=== PATIENT | female | born 1975 | race Caucasian/White ===

== ENCOUNTER 2017-01-04 08:49 | Emergency (ER) | payer MEDICAID ==
[~2017-01-04] VITALS: Ht 160 cm; Wt 74.4 kg
[2017-01-04 08:51] VITALS: BP 135/91
[2017-01-04] MEDS ORDERED: KETOROLAC 30 MG/1 ML ONE (09:23)
[2017-01-04] MEDS ORDERED: HYDROcodone/APAP 5/325 TABLET ONE (09:23)
[2017-01-04] MEDS ORDERED: HYDROcodone/APAP 5/325 TABLET PO ONE (09:30)
[2017-01-04] MEDS ORDERED: KETOROLAC 30 MG/1 ML IM ONE (09:30)
[2017-01-04 09:40] LABS: HEMATOCRIT 39.1 % (34.6-47.8); HEMOGLOBIN 13.4 g/dL (11.7-16.4); WHITE BLOOD COUNT 8.7 x10^3/uL (3.4-10)
[2017-01-04] MEDS ORDERED: PLEASE ENTER ALLERGIES MC SCH ×2 (10:00)
[2017-01-04 10:29] LABS: ANISOCYTOSIS 1+
== END 2017-01-04 10:56 | disposition home or self-care (01) ==
LOC: ED 10:26
DX: M13.171 Monoarthritis, not elsewhere classified, right ankle and foot (principal); M10.9 Gout, unspecified
CPT/HCPCS: 36415; 73630; 84550; 85025; 96372; 99285; J1885

== ENCOUNTER 2017-05-10 10:08 | Inpatient (IN) | payer MEDICAID ==
[~2017-05-10] VITALS: Ht 160 cm; Wt 80.3 kg
[2017-05-10] MEDS ORDERED: LORazepam 1MG TABLET ONE (10:48)
[2017-05-10] MEDS ORDERED: LORazepam 1MG TABLET PO ONE (11:00)
[2017-05-10] MEDS ORDERED: INDO25CA PO (11:02)
[2017-05-10 11:14] LABS: CULTURE INDICATED? NO; MICROSCOPIC NOT IND
[2017-05-10 11:48] LABS: MEAN CORPUSCULAR HEMOGLOBIN 38.1 pg (27.0-34.8); MEAN PLATELET VOLUME 9.1 fL (7.4-10.4); PLATELET COUNT 333 x10^3/uL (130-400); RED BLOOD COUNT 3.52 x10^6/uL (3.82-5.3); RED CELL DISTRIBUTION WIDTH 16.4 % (9.6-15.2)
[2017-05-10 11:50] LABS: ALANINE AMINOTRANSFERASE 35 U/L (12-78); ALBUMIN 3.2 g/dL (3.4-5.0); ANION GAP 13 mmol/L (5-15); CALCIUM 7.8 mg/dL (8.5-10.1); CHLORIDE 100 mmol/L (98-107); CREATININE 0.63 mg/dL (0.55-1.02)
[2017-05-10 11:55] LABS: ALKALINE PHOSPHATASE 166 U/L (45-117); BILIRUBIN,TOTAL 0.8 mg/dL (0.2-1.0); TOTAL PROTEIN 6.7 g/dL (6.4-8.2)
[2017-05-10 12:13] LABS: BASOPHILS # (AUTO) 0.04 x10^3/uL (0-0.1); BASOPHILS % (AUTO) 1 % (0-1); EOSINOPHILS # (AUTO) 0.02 x10^3/uL (0-0.4); EOSINOPHILS % (AUTO) 0 % (1-7); LYMPHOCYTES # (AUTO) 1.62 x10^3/uL (1-3.4); LYMPHOCYTES % (AUTO) 17 % (22-44); MD MORPH REVIEW ONLY; MONOCYTES # (AUTO) 0.45 x10^3/uL (0.2-0.8); MONOCYTES % (AUTO) 5 % (2-9); NEUTROPHILS # (AUTO) 7.45 x10^3/uL (1.8-6.8); NEUTROPHILS % (AUTO) 78 % (42-75)
[2017-05-10 12:14] LABS: ANISOCYTOSIS 2+
[2017-05-10 12:15] LABS: <PLATELET ESTIMATE> ADEQUATE; LARGE PLATELETS 1+; STOMATOCYTES 1+
[2017-05-10] MEDS ORDERED: MAGNESIUM SULFATE 1 GM/2 ML IVPush ONE (12:30)
[2017-05-10] MEDS ORDERED: POTASSIUM CHLORIDE 20 MEQ TAB.ER.PRT PO ONE (12:30)
[2017-05-10] MEDS ORDERED: POTASSIUM CHLORIDE 40 MEQ in SODIUM CHLORIDE 0.9% 500 ML IV ONE (12:30)
[2017-05-10] MEDS ORDERED: MAGNESIUM SULFATE 1 GM in SODIUM CHLORIDE 0.9% 50 ML IV ONE (12:30)
[2017-05-10] MEDS ORDERED: POTASSIUM CHLORIDE 20 MEQ TAB.ER.PRT ONE (12:50)
[2017-05-10] MEDS ORDERED: ONDANSETRON 2MG/ML, 2ML IVPush PRN (14:00)
[2017-05-10] MEDS ORDERED: POLYETHYLENE GLYCOL 17 GM PACKET PO PRN (14:00)
[2017-05-10] MEDS ORDERED: BISACODYL 10 MG SUPP PR PRN (14:00)
[2017-05-10] MEDS ORDERED: LABETALOL 5MG/ML, 20ML IVPush PRN (14:00)
[2017-05-10] MEDS ORDERED: ACETAMINOPHEN 325 MG TABLET PO PRN (14:00)
[2017-05-10] MEDS ORDERED: DOCUSATE 100 MG CAPSULE PO PRN (14:00)
[2017-05-10] MEDS ORDERED: ENALAPRILAT 1.25 MG/ML, 2ML IVPush PRN (14:00)
[2017-05-10] MEDS ORDERED: GADOBUTROL 7.5 MMOL/7.5 ML PFS ONE (15:27)
[2017-05-10] MEDS: SUMATRIPTAN 6MG/0.5ML SQ ONE ×2 (16:00→19:58)
[2017-05-10 16:33] VITALS: BP 129/78
[2017-05-10 17:57] LABS: ANION GAP 8 mmol/L (5-15); CALCIUM 7.6 mg/dL (8.5-10.1); CHLORIDE 104 mmol/L (98-107); CREATININE 0.58 mg/dL (0.55-1.02)
[2017-05-10] MEDS: FAMOTIDINE 20 MG TABLET PO SCH (19:56)
[2017-05-10] MEDS: SODIUM CHLORIDE 0.9% 1,000 ML IV SCH (19:59)
[2017-05-10 20:43] LABS: AMPHETAMINE SCREEN, URINE Negative (Negative); BARBITURATE SCREEN, URINE Negative (Negative); BENZODIAZEPINE SCREEN, URINE Negative (Negative); CANNABINOID SCREEN, URINE Negative (Negative); COCAINE SCREEN, URINE Negative (Negative); METHADONE SCREEN, URINE Negative (Negative); OPIATE SCREEN, URINE Negative (Negative)
[2017-05-10 20:48] VITALS: BP 132/85
[2017-05-10 22:05] LABS: CLOSTRIDIUM DIFFICILE ANTIGEN NEGATIVE; CLOSTRIDIUM DIFFICILE TOXIN NEGATIVE (Negative)
[2017-05-11 01:55] VITALS: BP 94/60
[2017-05-11] MEDS: HYDROcodone/APAP 5/325 TABLET PO PRN ×2 (04:46→12:40)
[2017-05-11] MEDS: SODIUM CHLORIDE 0.9% 1,000 ML IV SCH (05:28)
[2017-05-11 05:55] LABS: MEAN CORPUSCULAR HEMOGLOBIN 38.1 pg (27.0-34.8); MEAN CORPUSCULAR HGB CONC 33.9 g/dL (32.4-35.8); MEAN CORPUSCULAR VOLUME 112.3 fL (80-100); MEAN PLATELET VOLUME 8.5 fL (7.4-10.4); PLATELET COUNT 292 x10^3/uL (130-400); RED BLOOD COUNT 3.39 x10^6/uL (3.82-5.3); RED CELL DISTRIBUTION WIDTH 16.4 % (9.6-15.2)
[2017-05-11 06:14] LABS: ALBUMIN 2.7 g/dL (3.4-5.0); ANION GAP 9 mmol/L (5-15); CALCIUM 7.5 mg/dL (8.5-10.1); CHLORIDE 107 mmol/L (98-107)
[2017-05-11 06:30] LABS: BASOPHILS % (AUTO) 0 % (0-1); EOSINOPHILS # (AUTO) 0.05 x10^3/uL (0-0.4); EOSINOPHILS % (AUTO) 1 % (1-7); LYMPHOCYTES # (AUTO) 1.52 x10^3/uL (1-3.4); LYMPHOCYTES % (AUTO) 34 % (22-44); MD SCAN; MONOCYTES # (AUTO) 0.27 x10^3/uL (0.2-0.8); MONOCYTES % (AUTO) 6 % (2-9); NEUTROPHILS # (AUTO) 2.64 x10^3/uL (1.8-6.8); NEUTROPHILS % (AUTO) 59 % (42-75)
[2017-05-11 06:39] LABS: ALANINE AMINOTRANSFERASE 26 U/L (12-78); ALKALINE PHOSPHATASE 134 U/L (45-117); CREATININE 0.72 mg/dL (0.55-1.02); FOLATE LEVEL 7.7 ng/mL (3.1-17.5); TOTAL PROTEIN 5.7 g/dL (6.4-8.2)
[2017-05-11 07:33] VITALS: BP 127/94
[2017-05-11] MEDS ORDERED: THIAMINE 100MG TABLET PO ONE (08:00)
[2017-05-11] MEDS ORDERED: POTASSIUM CHLORIDE 20 MEQ TAB.ER.PRT PO ONE (08:00)
[2017-05-11] MEDS ORDERED: NS + 40MEQ KCL 1,000 ML IV SCH (08:00)
[2017-05-11] MEDS: FAMOTIDINE 20 MG TABLET PO SCH (08:51)
[2017-05-11] MEDS ORDERED: SUMATRIPTAN 25 MG TABLET PO PRN (09:00)
[2017-05-11] MEDS ORDERED: CALCIUM CITRATE 950 MG TABLET PO SCH (09:00)
[2017-05-11] MEDS ORDERED: FOLIC ACID 1 MG TABLET PO SCH (09:00)
[2017-05-11] MEDS ORDERED: NEUTRA PHOS K 250 MG TABLET PO SCH (09:00)
[2017-05-11 12:01] VITALS: BP 136/93
[2017-05-11 14:06] LABS: ANION GAP 12 mmol/L (5-15); CALCIUM 8.1 mg/dL (8.5-10.1); CHLORIDE 108 mmol/L (98-107); CREATININE 0.64 mg/dL (0.55-1.02)
[2017-05-11] MEDS ORDERED: SUMA25TA3 PO (15:25)
[2017-05-11] MEDS ORDERED: POTA20TA14 PO (15:25)
[2017-05-11] MEDS ORDERED: IBUP-1221 PO (15:26)
== END 2017-05-11 17:45 | disposition home or self-care (01) | DRG 92 ==
LOC: ED 11:12 → EDIP 13:34 → 4WST 15:54
PROVIDERS: ADMIT Internal Medicine; ATTEND Internal Medicine
DX: R20.0 Anesthesia of skin (principal); E44.1 Mild protein-calorie malnutrition; R47.1 Dysarthria and anarthria; D75.89 Other specified diseases of blood and blood-forming organs; Z68.31 Body mass index [BMI] 31.0-31.9, adult; E83.39 Other disorders of phosphorus metabolism; E83.42 Hypomagnesemia; E87.6 Hypokalemia; F10.129 Alcohol abuse with intoxication, unspecified; F17.200 Nicotine dependence, unspecified, uncomplicated; F32.9 Major depressive disorder, single episode, unspecified; F41.9 Anxiety disorder, unspecified; G43.009 Migraine without aura, not intractable, without status migrainosus; M10.9 Gout, unspecified; M19.90 Unspecified osteoarthritis, unspecified site; Z71.6 Tobacco abuse counseling
CPT/HCPCS: 36415; 70553; 71045; 72156; 80048; 80053; 80307; 81003; 82607; 82746; 83690; 83735; 84100; 84443; 84703; 85025; 87324; 93005; 96365; 96368; A9585; J3475; J3480; J3030; J7030; J7040

== ENCOUNTER 2018-06-07 09:55 | Emergency (ER) | payer MEDICAID, OTHER ==
[~2018-06-07] VITALS: Ht 160 cm; Wt 68.0 kg
[~2018-06-07 09:55] MED LIST: IBUP-1221 PO; INDO25CA5 PO; POTA20TA14 PO; SUMA25TA3 PO
[2018-06-07 10:04] VITALS: BP 117/84
[2018-06-07] MEDS ORDERED: KETOROLAC 30 MG/1 ML ONE (11:00)
[2018-06-07] MEDS ORDERED: COLCHICINE 0.6 MG TABLET PO ONE (12:00)
[2018-06-07] MEDS ORDERED: KETOROLAC 60 MG/2 ML IM ONE (12:00)
== END 2018-06-07 11:44 | disposition home or self-care (01) ==
LOC: ED 11:40
DX: M13.172 Monoarthritis, not elsewhere classified, left ankle and foot (principal); M10.072 Idiopathic gout, left ankle and foot
CPT/HCPCS: 96372; 99283; J1885